=== PATIENT | male | born 1985 ===

== ENCOUNTER 2023-05-06 04:23 | Day surgery (SDC) | payer OTHER ==
[2023-05-02 16:54] VITALS: BMI 29.8
[2023-05-06] MEDS ORDERED: MIDAZOLAM HCL 2 MG/2 ML SINGLE DOSE VIAL ONE (16:44)
[2023-05-06] MEDS ORDERED: FENTANYL CITRATE/PF 50 MCG/ML VIAL ONE ×3 (16:46→17:13)
[2023-05-06 17:50] VITALS: RESP 18
[2023-05-06 18:41] VITALS: BP 124/83; PULSE 83; TEMP 98
== END 2023-05-06 18:27 | disposition home or self-care (01) ==
LOC: JASU-SURG 04:23
PROVIDERS: ATTEND Urology
PROC: 0TF3XZZ Fragmentation in Right Kidney Pelvis, External Approach (ICD-10-PCS; principal; 2023-05-06 15:30)
DX: N20.0 Calculus of kidney (principal)